=== PATIENT | female | born 1970 | race Hispanic/Latino ===

== ENCOUNTER 2022-03-21 15:48 | Outpatient (CLI) | payer BC | END 2022-03-21 15:49 | disposition home or self-care (01) | LOC: SCSRAD 15:48 | PROVIDERS: ATTEND Family Medicine | DX: M25.522 Pain in left elbow (principal); S52.122A Displaced fracture of head of left radius, initial encounter for closed fracture; S52.132A Displaced fracture of neck of left radius, initial encounter for closed fracture ==